=== PATIENT | female | born 1975 | race Caucasian/White ===

== ENCOUNTER → 2016-07-09 | Outpatient (CLI) | payer OTHER | LOC: RAD 09:04 | DX: R31.9 Hematuria, unspecified (principal); K59.00 Constipation, unspecified | CPT/HCPCS: 74000 ==

== ENCOUNTER 2020-07-08 09:50 | Emergency (ER) | payer OTHER ==
[~2020-07-08 09:50] MED LIST: AUGMENTIN 875-1 EACH PO; CLARITIN10 MG PO; K-DUR TAB 20 M20 MEQ PO; NORCO 10-325 T1 EACH PO; OMEPRAZOLE40 MG PO; PREDNISONE10 MG PO; PROAIR HFA8.5 GM INH; SINGULAIR10 MG PO; SYMBICORT 80-10.2 GM INH
[2020-07-08] MEDS ORDERED: MEDROL DOSEPAK 24 MG PO (11:34)
== END 2020-07-08 11:45 | disposition home or self-care (01) ==
LOC: ER1 09:50
DX: M54.42 Lumbago with sciatica, left side (principal); J45.909 Unspecified asthma, uncomplicated; F17.210 Nicotine dependence, cigarettes, uncomplicated; Z90.49 Acquired absence of other specified parts of digestive tract; Z88.8 Allergy status to other drugs, medicaments and biological substances
CPT/HCPCS: 96372; 99283; J1100; J1885

== ENCOUNTER → 2020-09-09 | Outpatient (CLI) | payer OTHER ==
[~2020-09-09] MED LIST changes: +MEDROL DOSEPAK 24 MG PO
[2020-09-09 09:32] LABS: HEMOGLOBIN 14.8 gm/dl (12.3-15.3); RED BLOOD COUNT 4.78 M/UL (4.00-5.10)
[2020-09-09 09:48] LABS: BUN/CREATININE RATIO 15 (0-10)
== END ==
LOC: OPSV2 08:00
PROVIDERS: Orthopaedic Surgery
DX: Z01.812 Encounter for preprocedural laboratory examination (principal)
CPT/HCPCS: 36415; 80048; 85025

== ENCOUNTER → 2020-09-14 | Day surgery (SDC) | payer OTHER ==
[~2020-09-14] VITALS: Ht 170.2 cm; Wt 58.5 kg
== END | disposition home or self-care (01) ==
LOC: OR 05:54
DX: G56.03 Carpal tunnel syndrome, bilateral upper limbs (principal); J44.9 Chronic obstructive pulmonary disease, unspecified; K21.9 Gastro-esophageal reflux disease without esophagitis; F41.0 Panic disorder [episodic paroxysmal anxiety]; M19.90 Unspecified osteoarthritis, unspecified site; F17.210 Nicotine dependence, cigarettes, uncomplicated; Z79.899 Other long term (current) drug therapy; Z88.6 Allergy status to analgesic agent; Z88.0 Allergy status to penicillin; Z91.040 Latex allergy status; Z90.49 Acquired absence of other specified parts of digestive tract
CPT/HCPCS: J1100; J2001; J2250; J2405; J2704; J3010; J7120

== ENCOUNTER → 2020-12-21 | Outpatient (CLI) | payer OTHER ==
[~2020-12-21] MED LIST changes: +NEXIUM40 MG PO
[2020-12-21 10:34] LABS: HEMOGLOBIN 14.6 gm/dl (12.3-15.3); RED BLOOD COUNT 4.62 M/UL (4.00-5.10)
[2020-12-21 10:54] LABS: BUN/CREATININE RATIO 9 (0-10)
== END ==
LOC: OPSV2 09:56
PROVIDERS: Orthopaedic Surgery
DX: Z01.812 Encounter for preprocedural laboratory examination (principal); G56.02 Carpal tunnel syndrome, left upper limb; Z88.5 Allergy status to narcotic agent; Z88.6 Allergy status to analgesic agent; Z88.0 Allergy status to penicillin; Z91.040 Latex allergy status
CPT/HCPCS: 36415; 80048; 85027

== ENCOUNTER → 2020-12-26 | Day surgery (SDC) | payer OTHER ==
[~2020-12-26] VITALS: Ht 157.5 cm; Wt 59.9 kg
== END | disposition home or self-care (01) ==
LOC: OR 06:57
DX: G56.02 Carpal tunnel syndrome, left upper limb (principal); J44.9 Chronic obstructive pulmonary disease, unspecified; J45.909 Unspecified asthma, uncomplicated; K21.9 Gastro-esophageal reflux disease without esophagitis; F11.20 Opioid dependence, uncomplicated; Z88.1 Allergy status to other antibiotic agents; Z88.5 Allergy status to narcotic agent; Z91.040 Latex allergy status; Z20.822 Contact with and (suspected) exposure to COVID-19; Z90.49 Acquired absence of other specified parts of digestive tract; Z98.890 Other specified postprocedural states
CPT/HCPCS: 36415; 84703; J1100; J1885; J2001; J2250; J2405; J2704; J3010; J7120

== ENCOUNTER → 2021-05-08 | Emergency (ER) | payer OTHER | END | disposition home or self-care (01) | LOC: ER1 15:26 | DX: M54.41 Lumbago with sciatica, right side (principal); Z88.0 Allergy status to penicillin; Z88.6 Allergy status to analgesic agent | CPT/HCPCS: 99283; J1100; J1885 ==